=== PATIENT | male | born 1980 | race Caucasian/White ===

== ENCOUNTER 2020-06-05 11:34 | Emergency (ER) | payer BC, SELFPAY ==
[2020-06-05 11:59] VITALS: BP 133/88; PULSE 86; RESP 16; TEMP 36.8; O2SAT 99
[2020-06-05 12:12] VITALS: BP 133/88; PULSE 82; RESP 17; O2SAT 100
--- NOTE | 2020-06-05 12:15 | ECG_ITS ---
Measurements Intervals [place] Rate: 84 P: 38 AR: 123 QRS: 21 QRSD: 81 T: 75 QT: 354 QTc: 420 Interpretive Statements SINUS RHYTHM NORMAL ECG Electronically Signed On 06-05-2020 13:53:14 CDT by Jeff Moore D.O.
--- NOTE | 2020-06-05 12:16 | ED.ANXIETY ---
HPI - Anxiety General Chief Complaint: Anxiety Stated Complaint: PALPITATIONS Time Seen by Provider: 06/05/20 12:01 History of Present Illness HPI narrative: Healthy 40 yo male presents to the ED for anxiety. He was driving when he suddenly noted that his heart was pounding and seemed to be beating faster. He then began to feel short of breath. He pulled over the car because he was light headed and thought he might pass out. In additiona he notes that he was having muscle spasms in his hands and feet. When EMS arrived he had a noraml EKG. On my evaluation his symptoms have completely resolved and he feels that he was having an anxiety attack. Related Data Home Medications Medication Instructions Recorded Confirmed No Home Medications 06/05/20 Allergies Allergy/AdvReac Type Severity Reaction Status Date / Time No Known Allergies Allergy Unknown Verified 06/05/20 12:01 Review of Systems Review of Systems: All systems reviewed & are unremarkable except as noted in HPI and below Constitutional: Constitutional: Denies chills and Denies fever(s) Eyes: Eyes: Denies change in vision Cardiovascular: Cardiovascular: Denies chest pain and Reports rapid heart rate Respiratory: Respiratory: Reports dyspnea Gastrointestinal: Gastrointestinal: Denies abdominal pain, Denies nausea and Denies vomiting Musculoskeletal: Musculoskeletal: Denies back pain Neurologic: Reports dizziness, Denies headache(s), Reports numbness and Denies weakness Psychiatric: Psychiatric: Reports anxiety PMFSH Past Medical History Medical History Healthy adult Social History Social History Gender identity (if verbalized by the patient): Male Exam Const: General: healthy appearing, no acute distress and alert Orientation/consciousness: patient oriented x3 HENMT: Head: normal to inspection Neck: Neck: normal visual inspection and no lymphadenopathy Chest: Chest palpation & inspection: no tenderness Resp: Effort & Inspection: normal respiratory effort Auscultation: clear to auscultation bilaterally, no rales, no rhonchi and no wheezes Cardio: Jugular venous distension: no JVD Rate: regular rate Rhythm: regular rhythm Heart sounds: no murmurs GI: Inspection: non-distended GI Palp: Yes Soft to palpation and No Tenderness to palpation present (GI) Skin: General skin exam: normal color Neuro: General: patient oriented x3 and moves all extremities Speech: normal speech Extrem: General: no edema Psych: Appearance: well kempt Affect: normal affect Course Vital Signs Vital signs: Vital Signs Temperature 36.8 C 06/05/20 11:59 Pulse Rate 86 06/05/20 11:59 Respiratory Rate 16 06/05/20 11:59 Blood Pressure 133/88 06/05/20 11:59 Pulse Oximetry 99 06/05/20 11:59 Temperature 36.8 C 06/05/20 11:59 Pulse Rate 82 06/05/20 12:12 Respiratory Rate 17 06/05/20 12:12 Blood Pressure 133/88 06/05/20 12:12 Pulse Oximetry 100 06/05/20 12:12 MDM - Anxiety MDM Narrative Medical decision making narrative: EKG normal. Symptoms resolved. Sounds consistent with anxiety attack. Given that symptoms have completely resolved I do not feel it would be beneficial to do a more extensive work-up at this time. Differential Diagnosis Differential diagnosis: Likely hyperventilation, panic disorder and acute anxiety Medical Records Attestation: I reviewed the patient's medical records. Discharge Plan Discharge Clinical Impression: Anxiety attack Patient Disposition: Home, Self-Care Condition: Stable Instructions: Panic Attack (ED) Prescriptions: No Action No Home Medications RF: 0 Follow-up/Referrals: Juwan,Manoj Garrett MD [Primary Care Provider] -
[2020-06-05 13:16] VITALS: BP 138/84; PULSE 82; RESP 16; O2SAT 100
== END 2020-06-05 13:17 | disposition home or self-care (01) ==
PROVIDERS: Emergency Provider Emergency Medicine; PCP Internal Medicine
DX: F41.9 Anxiety disorder, unspecified (principal)
CPT/HCPCS: 93005; 99283